=== PATIENT | female | born 1990 | race Caucasian/White ===

== ENCOUNTER 2019-05-07 02:25 | Emergency (ER) | payer OTHER ==
[~2019-05-07] VITALS: Ht 170.2 cm; Wt 63.5 kg
[2019-05-07] MEDS ORDERED: TDAP [DIPH/PERTUSSIS/TET] 0.5 ML VIAL IM ONE ×2 (02:30→02:41)
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
[2019-05-07] MEDS ORDERED: IV NS 0.9% 250 ML IV ONE (02:48)
[2019-05-07] MEDS ORDERED: CT SWABBABLE VALVE TRANS SET 1 EA INFUS.SET MC ONE (02:48)
[2019-05-07] MEDS ORDERED: IOHEXOL-300 100 ML VIAL IV ONE (02:48)
--- NOTE | 2019-05-07 03:00 | NUR ---
PT APPEARS INTOXICATED, SLURRING WORDS AND YELLING AT STAFF. PT CONSTANTLY NEEDS TO BE REMINDED TO RETURN TO BED. ER MD AWARE
[2019-05-07] MEDS ORDERED: LORAZEPAM INJ 2 MG/ML VIAL ONE (03:05)
[2019-05-07] MEDS ORDERED: HALOPERIDOL LACTATE INJ 5 MG/ML VIAL ONE (03:05)
[2019-05-07] MEDS ORDERED: diphenhydrAMINE HCL 50 MG/ML VIAL ONE (03:05)
--- NOTE | 2019-05-07 03:10 | NUR ---
PT BROUGHT BY RADIOLOGY TO CT
[2019-05-07] MEDS ORDERED: HALOPERIDOL LACTATE INJ 5 MG/ML VIAL IM ONE (03:30)
[2019-05-07] MEDS ORDERED: LORAZEPAM INJ 2 MG/ML VIAL IV ONE (03:30)
[2019-05-07] MEDS ORDERED: diphenhydrAMINE HCL 50 MG/ML VIAL IM ONE (03:30)
--- NOTE | 2019-05-07 04:59 | NUR ---
PT'S PMP PROJECT MANAGER ETA : [phone]
--- NOTE | 2019-05-07 05:48 | NUR ---
PT AAOX4. AMBULATORY WITH STEADY GAIT. PER DR. RAYMOND, MEDICALLY CLEARED FOR DISCHARGE. Patient discharged to home in stable condition. Written and verbal after care instructions given. Patient verbalizes understanding of instruction.IV removed. Catheter intact and site benign. Pressure and 4x4 applied to site. No bleeding noted.Pt ambulatory with a steady gait. PT INSTRUCTED NOT TO DRIVE. PT VERBALIZED UNDERSTANDING, PICKED UP BY FRIEND
[2019-05-07 05:49] VITALS: BP 137/79
== END 2019-05-07 05:50 | disposition home or self-care (01) ==
LOC: ER 02:28 → EDBD 02:28 → ER 05:50
DX: S02.2XXA Fracture of nasal bones, initial encounter for closed fracture (principal); F10.129 Alcohol abuse with intoxication, unspecified; E04.2 Nontoxic multinodular goiter; M85.60 Other cyst of bone, unspecified site; V49.49XA Driver injured in collision with other motor vehicles in traffic accident, initial encounter; Y93.89 Activity, other specified; Y92.413 State road as the place of occurrence of the external cause; Y99.8 Other external cause status; Y90.9 Presence of alcohol in blood, level not specified
CPT/HCPCS: 70450; 70486; 71260; 72125; 74177; 90471; 90715; 99285; A6403; J7050; Q9967; J1200; J1630; J2060